=== PATIENT | male | born 1965 | race Caucasian/White ===

== ENCOUNTER 2018-10-22 07:47 | Day surgery (SDC) | payer BC ==
[2018-10-17 13:29] VITALS: BMI 38.3
[2018-10-22 08:09] VITALS: TEMP 98.5
[2018-10-22] MEDS ORDERED: LIDOCAINE 1% 20 ML VIAL (10MG/ML) FOR IV START SQ ONE (08:09)
[2018-10-22] MEDS ORDERED: LACTATED RINGERS 1,000 ML IV ONE (08:09)
[2018-10-22 08:12] LABS: Glucose,Whole Blood 101 mg/dL (75-99)
[2018-10-22] MEDS ORDERED: LIDOCAINE 1% INJ 10MG/ML (20 ML MDV) ONE (08:30)
[2018-10-22] MEDS ORDERED: PROPOFOL 10 MG/ML 20 ML VIAL IV ONE (08:30)
--- NOTE | 2018-10-22 08:38 | P.GSHP ---
History of Present Illness H&P Date: 10/22/18 Chief Complaint: Screening colonoscopy This a 53-year-old male who presents today for screening colonoscopy. Patient denies a significant GI complaints. Past Medical History Past Medical History: COPD, Diabetes Mellitus, Hyperlipidemia, Hypertension, Skin Disorder Additional Past Medical History / Comment(s): eczema, states past hx of COPD, states no issues since quit smoking, states borderline hyperlipidemia, no current rx, History of Any Multi-Drug Resistant Organisms: None Reported Past Surgical History: No Surgical Hx Reported Additional Past Surgical History / Comment(s): COLONOSCOPY Past Anesthesia/Blood Transfusion Reactions: Previous Problems w/ Anesthesia Additional Past Anesthesia/Blood Transfusion Reaction / Comment(s): "TEND TO WAKE UP IN THE MIDDLE OF IT" Smoking Status: Former smoker - Past Family History Mother Family Medical History: Cancer Additional Family Medical History / Comment(s): COLON Medications and Allergies Home Medications Medication Instructions Recorded Confirmed Type Lisinopril 20 mg PO QAM 10/17/18 10/22/18 History Metformin 1 tab PO BID 10/17/18 10/22/18 History Allergies Allergy/AdvReac Type Severity Reaction Status Date / Time No Known Allergies Allergy Verified 10/22/18 07:56 Surgical - Exam Vital Signs Temp Pulse Resp BP Pulse Ox 98.5 F 73 16 123/65 97 10/22/18 08:00 10/22/18 08:00 10/22/18 08:00 10/22/18 08:00 10/22/18 08:00 - General well developed, well nourished, no distress - Eyes PERRL - ENT normal pinna - Neck no masses - Respiratory normal expansion - Cardiovascular Rhythm: regular - Abdomen Abdomen: soft, non tender Results - Labs Abnormal Lab Results - Last 24 Hours (Table) 10/22/18 Range/Units 08:06 POC Glucose (mg/dL) 101 H (75-99) mg/dL Assessment and Plan Assessment: We'll perform screening colonoscopy.
--- NOTE | 2018-10-22 08:55 | P.OP ---
Date of Procedure: 10/22/18 Preoperative Diagnosis: Screening colonoscopy Postoperative Diagnosis: Transverse colon polyp Diverticulosis Internal and external hemorrhoids Procedure(s) Performed: Colonoscopy Anesthesia: MAC Surgeon: Jim Alfaro Pathology: other Condition: stable Description of Procedure: Patient's placed on the endoscopy table in the lateral position. He received IV sedation. Digital rectal exam was performed which revealed internal and external hemorrhoids. The hemorrhoids appeared friable. The scope was then placed patient anus passed rotator entire colon. The ileocecal valve appeared normal. The cecum and ascending colon was normal. The transverse colon there was a polyp seen this removed the cold forcep. The scope was then brought back and in the descending sigmoid colon there were diverticular changes. The scope was then brought back the rectum and this appeared normal. Scope withdrawn for patient.
[2018-10-22 09:23] VITALS: BP 113/72; PULSE 62; RESP 16
== END 2018-10-22 09:30 | disposition home or self-care (01) ==
LOC: ORWHC2ENDO 07:47
PROVIDERS: ATTEND Surgery
DX: Z12.11 Encounter for screening for malignant neoplasm of colon (principal); K63.5 Polyp of colon; K57.30 Diverticulosis of large intestine without perforation or abscess without bleeding; K64.8 Other hemorrhoids; K64.4 Residual hemorrhoidal skin tags; E78.5 Hyperlipidemia, unspecified; E11.9 Type 2 diabetes mellitus without complications; I10 Essential (primary) hypertension; G47.33 Obstructive sleep apnea (adult) (pediatric); J44.9 Chronic obstructive pulmonary disease, unspecified; Z79.84 Long term (current) use of oral hypoglycemic drugs; Z87.891 Personal history of nicotine dependence; Z79.899 Other long term (current) drug therapy; Z99.89 Dependence on other enabling machines and devices
CPT/HCPCS: 88305; 45380; J2001; J2704

== ENCOUNTER → 2021-03-02 | Outpatient (CLI) | payer MEDICAID | END | disposition home or self-care (01) | LOC: LABWHC1 15:12 | PROVIDERS: ATTEND Family Medicine | DX: Z20.822 Contact with and (suspected) exposure to COVID-19 (principal); J06.9 Acute upper respiratory infection, unspecified | CPT/HCPCS: 87502; U0003; C9803; U0005 ==

== ENCOUNTER 2021-04-11 14:12 | Emergency (ER) | payer MEDICAID ==
[2021-04-11] MEDS ORDERED: IBUPROFEN 800 MG TAB PO STA (20:25)
--- NOTE | 2021-04-11 20:28 | ED ---
General Adult HPI - General Chief complaint: Upper Respiratory Infection Stated complaint: Covid+/Needs Antibodies Time Seen by Provider: 04/11/21 20:20 Source: patient, RN notes reviewed, old records reviewed Mode of arrival: ambulatory Limitations: no limitations - History of Present Illness Initial comments: 36-year-old male presents to the emergency room with complaints of congestion, cough, headache and low-grade fever and loss of taste and smell since April 07. He states he took an at home Covid test and was positive. His primary care doctor told him to come to the emergency room for monoclonal antibodies. He did get Pfizer vaccine in September of this year. He also has a history of COPD, diabetes, hypertension. He is a former smoker. Denies any nausea vomiting or diarrhea. He denies any chest pain. -: days(s) (4) Location: head, face Severity scale (1-10): 1 Quality: aching Consistency: intermittent Improves with: none Worsens with: none Associated Symptoms: cough, fever/chills, headaches Treatments Prior to Arrival: none - Related Data Home Medications Medication Instructions Recorded Confirmed Lisinopril 20 mg PO QAM 10/17/18 10/22/18 Metformin 1 tab PO BID 10/17/18 10/22/18 Allergies Allergy/AdvReac Type Severity Reaction Status Date / Time No Known Allergies Allergy Verified 04/11/21 18:17 Review of Systems ROS Statement: Those systems with pertinent positive or pertinent negative responses have been documented in the HPI. ROS Other: All systems not noted in ROS Statement are negative. Past Medical History Past Medical History: COPD, Diabetes Mellitus, Hyperlipidemia, Hypertension, Skin Disorder Additional Past Medical History / Comment(s): eczema, states past hx of COPD, states no issues since quit smoking, states borderline hyperlipidemia, no current rx, History of Any Multi-Drug Resistant Organisms: None Reported Past Surgical History: No Surgical Hx Reported Additional Past Surgical History / Comment(s): COLONOSCOPY Past Anesthesia/Blood Transfusion Reactions: Previous Problems w/ Anesthesia Additional Past Anesthesia/Blood Transfusion Reaction / Comment(s): "TEND TO WAKE UP IN THE MIDDLE OF IT" Past Psychological History: No Psychological Hx Reported Smoking Status: Former smoker Past Alcohol Use History: Occasional Past Drug Use History: None Reported - Past Family History Mother Family Medical History: Cancer Additional Family Medical History / Comment(s): COLON General Exam Limitations: no limitations General appearance: alert, in no apparent distress Head exam: Present: atraumatic, normocephalic, normal inspection Eye exam: Present: normal appearance, EOMI ENT exam: Present: normal exam, normal oropharynx, mucous membranes moist Neck exam: Present: normal inspection, full ROM. Absent: tenderness, meningismus, lymphadenopathy Respiratory exam: Present: normal lung sounds bilaterally. Absent: respiratory distress, wheezes, rales, rhonchi, stridor Cardiovascular Exam: Present: regular rate Back exam: Absent: tenderness, CVA tenderness (R), CVA tenderness (L) Neurological exam: Present: alert, oriented X3, normal gait Psychiatric exam: Present: normal affect, normal mood Skin exam: Present: warm, dry, intact, normal color. Absent: rash, cyanosis, diaphoretic Course Vital Signs 04/11/21 04/11/21 04/11/21 18:17 18:21 22:21 Temperature 100.2 F H 99.1 F Pulse Rate 91 90 Respiratory 18 20 Rate Blood Pressure 161/89 145/88 O2 Sat by Pulse 97 96 Oximetry Medical Decision Making - Medical Decision Making This is a 56-year-old male that presents to the emergency room with complaints o f tested positive for Covid. He was advised primary care doctor for monoclonal antibodies. His oxygen saturation at discharge is 97% he was given monoclonal antibodies as requested. He has a history of COPD, diabetes and hypertension. He tolerated the infusion well with no complications. His vital signs are stable at discharge. Instructed to return to the emergency room with any new or concerning symptoms. Disposition Clinical Impression: COVID-19 Disposition: HOME SELF-CARE Condition: Good Instructions (If sedation given, give patient instructions): Coronavirus Disease 2019 (COVID-19) Additional Instructions: Take Tylenol and/or Motrin as needed for body aches or fevers. We also recommend vitamin C, vitamin D and zinc to help improve your immune health. Increase your fluid intake. Follow-up with the primary care doctor next week please. Return to the emergency room with any new or concerning symptoms including chest pain or worsening difficulty in breathing. Is patient prescribed a controlled substance at d/c from ED?: No Referrals: Cachorro Beverly MD [Primary Care Provider] - 1-2 days Time of Disposition: 22:19
[2021-04-11] MEDS ORDERED: SODIUM CHLORIDE 0.9% 50 ML IVPB ONE (20:45)
[2021-04-11] MEDS ORDERED: BAMLANIVIMAB (EUA) 700 MG, ETESEVIMAB (EUA) 1,400 MG in SODIUM CHLORIDE 0.9% 50 ML IVPB ONE (21:00)
[2021-04-11 22:25] VITALS: BP 145/88; PULSE 90; RESP 20; TEMP 99.1
== END 2021-04-11 22:25 | disposition home or self-care (01) ==
LOC: EC 14:12
DX: U07.1 COVID-19 (principal); J44.9 Chronic obstructive pulmonary disease, unspecified; I10 Essential (primary) hypertension; E11.9 Type 2 diabetes mellitus without complications; Z79.899 Other long term (current) drug therapy; Z79.84 Long term (current) use of oral hypoglycemic drugs; Z87.891 Personal history of nicotine dependence
CPT/HCPCS: 99283; 96365; J3490

== ENCOUNTER → 2021-12-28 | Outpatient (CLI) | payer MEDICAID ==
[2021-12-28 14:59] LABS: ALT 26 U/L (10-49); AST 21 U/L (14-35); African American GFR (CKD) 121.4 (60.0-200.0); Albumin 4.4 g/dL (3.8-4.9); Albumin/Globulin Ratio 1.69 (1.60-3.17); Alkaline Phosphatase 51 U/L (41-126); Blood Urea Nitrogen 11.2 mg/dL (9.0-27.0); Calcium 9.2 mg/dL (8.7-10.3); Carbon Dioxide 24.7 mmol/L (20.0-27.5); Chloride 105 mmol/L (96-109); Chol/HDL Ratio 7.18 Ratio; Globulin 2.6 g/dL (1.6-3.3); Glucose 170 mg/dL (70-110); LDL Cholesterol,Calculated 157.1 mg/dL (0.0-131.0); Non-African American GFR(CKD) 104.8 (60.0-200.0); Potassium 4.4 mmol/L (3.5-5.5); Sodium 140 mmol/L (135-145)
[2021-12-28 16:04] LABS: Basophils # (A) 0.03 X 10*3/uL (0.00-0.10); Basophils % (A) 0.4 %; Eosinophils # (A) 0.27 X 10*3/uL (0.04-0.35); Eosinophils % (A) 3.4 %; HCT 42.8 % (39.6-50.0); HGB 14.4 g/dL (13.0-17.0); Immature Grans, Automated 0.4 %; Lymphocytes # (A) 2.12 X 10*3/uL (0.90-5.00); Lymphocytes % (A) 26.4 %; MCH 29.5 pg (27.0-32.0); MCHC 33.6 g/dL (32.0-37.0); MCV 87.7 fL (80.0-97.0); Mean Platelet Volume 13.6 fL (9.5-12.2); Monocytes # (A) 0.81 X 10*3/uL (0.20-1.00); Monocytes % (A) 10.1 %; NRBC Per 100 WBC 0 /100 WBCS (0.0-0.0); Neutrophils # (A) 4.78 X 10*3/uL (1.80-7.70); Neutrophils % (A) 59.3 %; Platelet Count 132 X 10*3/uL (140-440); RBC 4.88 X 10*6/uL (4.40-5.60); RDW 13.7 % (11.5-14.5); WBC 8.04 X 10*3/uL (4.50-10.00)
== END | disposition home or self-care (01) ==
LOC: LABWHC1 09:28
PROVIDERS: ATTEND Family Medicine
DX: Z12.5 Encounter for screening for malignant neoplasm of prostate (principal); E11.9 Type 2 diabetes mellitus without complications
CPT/HCPCS: 36415; 80053; 80061; 83036; 84153; 85025

== ENCOUNTER → 2022-01-18 | Outpatient (CLI) | payer MEDICAID ==
--- NOTE | 2022-01-18 11:58 | CA ---
Stress Echo Report Omid Lopez Age: 56 Gender: M : 1965 Exam Date: 01/18/2022 09:21 Exam Location: [facility] Ht (in): 71 Wt (lb): 290 Ordering Physician: Cachorro Beverly MD Referring Physician: CACHORRO BEVERLY,, Slip Cover Cutter: Batsheva Loredo RDCS Technologist Procedure CPT: Indication: R94.31 ABNORMAL EKG ICD-9 Codes: Rhythm: Patient History: Cardiac Medications: Medications in past 24 hours: Contrast: Stress Results Protocol: Garrett Total dose(mL): Exercise Duration (min:sec): Max ST Depression (mm): Angina Score: Trammell Score: METS: 7.5 Resting HR: 78 Resting BP: 120 / 55 Peak HR: 141 Peak BP: 176 / 52 Max Predicted HR: 163 87 % Max Predicted HR Target HR: 139 Double Product: [id number] Stress Summary: BP Response: Reason for Termination: MAX EXERTION/TARGET HR Cardiac Symptoms: DIFFICULTY IN BREATHING ECG Analysis Resting ECG: Stress ECG: Arrhythmia: Echo Analysis Resting Echo: Peak Echo Analysis: MEASUREMENTS (Male/Female) Normal Values CONCLUSIONS Patient underwent exercise stress echo with a Garrett protocol treadmill stress test. Patient exercised into Stage 2 for a total of 6 minutes 15 seconds reaching a total of 7.5 METS. Patient's maximum heart rate was 141 which represented 86% age- predicted maximum heart rate. Stress EKG portion: At baseline patient's EKG showed normal sinus rhythm, normal axis, T-wave inversions III, aVF. At peak exercise, EKG showed no significant change from baseline. There was a 4 beat run of nonsustained VT in recovery. Stress echo portion: 2-D echocardiogram was performed in the parasternal long, personal short, apical 2 and apical four-chamber views at rest, peak exercise and in recovery. At baseline, echocardiogram showed left ventricular ejection fraction 55% without wall motion abnormalities. With peak exercise, echocardiogram shows improvement in left ventricular ejection fraction, increase contractility, decrease in left ventricular end systolic dimension without wall motion abnormalities consistent with a normal response to exercise. Conclusions: 1. Normal EKG and echo response to exercise without evidence of inducible ischemia. 2. Fair exercise capacity. 3. Normal left ventricular ejection fraction 55% 4. 4 beat run of nonsustained VT in recovery. Clinical correlation recommended. Dr. Vamshi Camacho DO (Electronically Signed) Final Date: 18 January 2022 11:57
== END | disposition home or self-care (01) ==
LOC: RADNMMAIN 09:02
PROVIDERS: ATTEND Family Medicine
DX: R94.31 Abnormal electrocardiogram [ECG] [EKG] (principal)
CPT/HCPCS: 93351; Q9950

== ENCOUNTER → 2023-05-01 | Outpatient (CLI) | payer OTHER ==
--- NOTE | 2023-05-01 16:51 | P.SLEEP ---
History of Present Illness H&P Date: 05/01/23 This is a 58-year-old male patient with known history of obstructive sleep apnea. The patient was originally diagnosed back in 2015 and this was approximately 10 years ago. He was given a CPAP unit for severe symptomatic obstructive sleep apnea. On original polysomnography is not available. I be lieve this was done and the sleep [facility] and [place]. The patient subsequently had issues with his ResMed S9 CDs any in the purchasing a ResMed 10 units online. He managed continues treatment and he has been treated with a CPAP pressure of 11.5 cm of water. He self adjusted his pressure. Based on that, he is coming in to be reevaluated. Is also interested in obtaining a newer CPAP unit. Obviously, any confirmation on his obstructive sleep apnea may be needed should there be a need to order new machine. I checked the compliance and his current machine. The patient has been utilizing the machine every night and his compliancy for more than 4 hours is is 100%. The patient has been averaging about 8.9 hours of CPAP use per night. His AHI is down to 2.7 and his leak is in order of 22 liters per minutes. No major hypersomnia or sleepiness during the day. His climate control his automatic and his temperature and his climate line is at 60F and the patient is using a moore fx large size nasal pillows. He is doing well. His weight has remained stable. No major hypersomnia or sleepiness. He goes to bed at around 10 PM and wakes up 6 AM in the morning. No snoring as long as is on CPAP therapy. His current [place] score is down to 3. No significant nighttime shortness of breath or heartburn. No daytime hypersomnia or sleepiness. Review of Systems Constitutional: Denies chills, Denies fever Eyes: denies as per HPI, denies blurred vision, denies bulging eye, denies decreased vision, denies diplopia, denies discharge, denies dry eye, denies irritation, denies itching, denies pain, denies photophobia, denies loss of peripheral vision, denies loss of vision, denies tunnel vision/blind spots Ears: deny: decreased hearing, ear discharge, earache, tinnitus Ears, nose, mouth and throat: Reports as per HPI Breasts: absent: as per HPI, gynecomastia Cardiovascular: Reports as per HPI Respiratory: Reports sleep apnea, Reports snoring Gastrointestinal: Reports as per HPI Genitourinary: Reports as per HPI Musculoskeletal: Reports as per HPI Musculoskeletal: absent: ankle pain, ankle stiffness, ankle swelling, as per HPI, elbow pain, elbow stiffness, elbow swelling, foot pain, foot stiffness, foot swelling, hand pain, hand stiffness, hand swelling, hip pain, hip stiffness, hip swelling, knee pain, knee stiffness, knee swelling, shoulder pain, shoulder stiffness, shoulder swelling, wrist pain, wrist stiffness, wrist swelling Integumentary: Reports as per HPI Neurological: Reports as per HPI Psychiatric: Reports as per HPI Endocrine: Reports as per HPI Hematologic/Lymphatic: Reports as per HPI Past Medical History Past Medical History: COPD, Diabetes Mellitus, Hyperlipidemia, Hypertension, Skin Disorder, Sleep Apnea/CPAP/BIPAP Additional Past Medical History / Comment(s): eczema, states past hx of COPD, states no issues since quit smoking, states borderline hyperlipidemia, no current rx, History of Any Multi-Drug Resistant Organisms: None Reported Past Surgical History: No Surgical Hx Reported Additional Past Surgical History / Comment(s): COLONOSCOPY Past Anesthesia/Blood Transfusion Reactions: Previous Problems w/ Anesthesia Additional Past Anesthesia/Blood Transfusion Reaction / Comment(s): "TEND TO WAKE UP IN THE MIDDLE OF IT" Past Psychological History: No Psychological Hx Reported Smoking Status: Former smoker Past Alcohol Use History: Occasional Past Drug Use History: None Reported - Past Family History Mother Family Medical History: Cancer Additional Family Medical History / Comment(s): COLON Medications and Allergies Home Medications Medication Instructions Recorded Confirmed Type Lisinopril 20 mg PO QAM 10/17/18 10/22/18 History Metformin 1 tab PO BID 10/17/18 10/22/18 History Allergies Allergy/AdvReac Type Severity Reaction Status Date / Time No Known Allergies Allergy Verified 04/11/21 18:17 Physical Exam BP is 159/98, pulse is 77, respirations 16, temperature is 98.0, pulse ox is 98% on room air, BMI is 44, temperature 98.0 Gen. appearance the patient is calm and comfortable, morbidly obese, not in distress.The patient appeared well nourished and normally developed. Vital signs as documented. Head exam is unremarkable. No scleral icterus or corneal arcus noted. Neck is without jugular venous distension, thyromegaly, or carotid bruits. The patient is a Mallampati class IV with significant crowding of the posterior pharynx Carotid upstrokes are brisk bilaterally. Lungs are clear to auscultation and percussion. Cardiac exam reveals the PMI to be normally sized and situated. Rhythm is regular. First and second heart sounds normal. No murmurs, rubs or gallops. Abdominal exam reveals normal bowel sounds, no masses, no organomegaly and no aortic enlargement. Extremities are nonedematous and both femoral and pedal pulses are normal.Examination of the skin revealed no evidence of significant rashes, suspicious appearing nevi or other concerning lesions.Neurologically, the patient is awake and alert and the patient does not have any focal neurological deficit. Cranial nerves are essentially intact. Assessment and Plan Plan: Obstructive sleep apnea, successfully treated with a CPAP pressure of 11.5 cm of water. The patient is also utilizing a moore fx large size nasal pillow. Treatment has been successful. The patient is interested in updating his CPAP unit. His last machine was obtained from [facility] than 10 years ago. Obesity with a BMI of 44 Chronic hypersomnia recovered as long as the patient remains on CPAP therapy, his current [place] score is at 3 Diabetes mellitus type 2 Hypertension Hyperlipidemia Plan I'm going to order a CPAP machine for this patient through [facility]. This will be set at a pressure of 12 cm of water. He'll be maintained on the same mask interface. If needed, home sleep study will be obtained to confirm the ongoing presence of sleep apnea and its severity. Once a new CPAP machine is obtained, the patient is going to come and see me back and 30-90 days for a compliancy check. Sleep Note - Sleep Note Sleep Note: Temperature: Pulse Rate: Respiratory Rate: Blood Pressure: SpO2: Height: Weight: BMI: Neck Circumference:
== END ==
LOC: 3 N SLEEP 13:51
PROVIDERS: ATTEND Internal Medicine Critical Care Medicine
DX: G47.33 Obstructive sleep apnea (adult) (pediatric) (principal); J44.9 Chronic obstructive pulmonary disease, unspecified; E66.9 Obesity, unspecified; E11.9 Type 2 diabetes mellitus without complications; E78.5 Hyperlipidemia, unspecified; I10 Essential (primary) hypertension; G47.10 Hypersomnia, unspecified; Z68.41 Body mass index [BMI] 40.0-44.9, adult; Z87.891 Personal history of nicotine dependence; Z79.84 Long term (current) use of oral hypoglycemic drugs
CPT/HCPCS: 99211